=== PATIENT | female | born 1935 | race Caucasian/White ===

== ENCOUNTER 2017-02-28 17:15 | Inpatient (IN) | payer MEDICARE, OTHER ==
[2017-02-28] MEDS: SOD CHLORIDE 0.9% 1,000 ML IV (18:02)
[2017-02-28] MEDS: ONDANSETRON 4 MG INJ IV (18:02)
[2017-02-28 18:06] LABS: ADD MAN DIFF? NO
[2017-02-28 18:22] LABS: INR 1.01; PROTIME 13.4 Sec (11.9-14.9)
[2017-02-28 18:30] LABS: ALANINE AMINOTRANSFERASE 34 IU/L (13-69); ALBUMIN 4.5 g/dl (3.3-4.9); ALKALINE PHOSPHATASE 85 IU/L (42-121); ANION GAP 19 (8-16); ASPARTATE AMINO TRANSFERASE 26 IU/L (15-46); BILIRUBIN,INDIRECT 0.1 mg/dl (0-1.1); BILIRUBIN,TOTAL 0.1 mg/dl (0.2-1.3); BLOOD UREA NITROGEN 23 mg/dl (7-20); CALCIUM 9.5 mg/dl (8.4-10.2); CARBON DIOXIDE 24 mmol/L (21-31); CHLORIDE 108 mmol/L (97-110); CREATININE 0.96 mg/dl (0.44-1.00); GLUCOSE 191 mg/dl (70-220); POTASSIUM 5.4 mmol/L (3.5-5.1); SODIUM 146 mmol/L (135-144); TOTAL PROTEIN 7.3 g/dl (6.1-8.1)
[2017-02-28 18:31] LABS: AMMONIA < 9 umol/l (9-30)
[2017-02-28 18:33] LABS: LACTIC ACID 2.3 mmol/L (0.5-2.0)
[2017-02-28 18:42] LABS: TROPONIN-I < 0.012 ng/ml (0.00-0.12)
[2017-02-28 19:37] LABS: WHITE BLOOD COUNT 6.3 10^3/ul (4.8-10.8)
[2017-02-28 19:37] LABS: BASOPHILS % 0.6 % (0.0-2.0); EOSINOPHILS % 0.2 % (0.0-7.0); HEMATOCRIT 29.6 % (37.0-47.0); HEMOGLOBIN 9.1 g/dl (12.0-16.0); LYMPHOCYTES % 16.2 % (15.0-51.0); MEAN CORPUSCULAR HEMOGLOBIN 25.2 pg (29.0-33.0); MEAN CORPUSCULAR HGB CONC 30.7 g/dl (32.0-37.0); MONOCYTE # 0.2 10^3/ul (0.3-0.9); MONOCYTES % 3.5 % (0.0-11.0); PLATELET COUNT 229 10^3/UL (140-415); RED BLOOD COUNT 3.61 10^6/ul (4.20-5.40)
[2017-02-28 19:52] LABS: LACTIC ACID 1.8 mmol/L (0.5-2.0)
[2017-02-28 19:54] LABS: PARTIAL THROMBOPLASTIN TIME 31.2 Sec (25.0-35.0)
[2017-02-28 20:10] LABS: ADD UMIC YES; UR ASCORBIC ACID NEGATIVE (NEGATIVE); UR BILIRUBIN (Dip) NEGATIVE (NEGATIVE); UR BLOOD (Dip) NEGATIVE (NEGATIVE); UR CLARITY CLEAR (CLEAR); UR COLOR STRAW (YELLOW); UR GLUCOSE (Dip) 1+ mg/dL (NEGATIVE); UR KETONES (Dip) TRACE mg/dL (NEGATIVE); UR LEUKOCYTE ESTERASE (Dip) TRACE Leu/ul (NEGATIVE); UR NITRITE (Dip) NEGATIVE (NEGATIVE); UR RBC 1 /HPF (0-5); UR SPECIFIC GRAVITY (Dip) 1.011 (1.003-1.030); UR TOTAL PROTEIN (Dip) NEGATIVE (NEGATIVE); UR UROBILINOGEN (Dip) NEGATIVE (NEGATIVE); UR WBC 10 /HPF (0-5)
[2017-02-28] MEDS ORDERED: ACETAMINOPHEN 325 MG TAB PO (21:00)
[2017-02-28] MEDS ORDERED: ONDANSETRON 4 MG INJ IV (21:00)
[2017-02-28] MEDS: CEFTRIAXONE 1 GM/50 ML (PMX) 50 ML IVPB (21:08)
[2017-02-28 21:58] LABS: LACTIC ACID 2.2 mmol/L (0.5-2.0)
[2017-02-28] MEDS ORDERED: MAGNESIUM HYDROXIDE 30ML CUP PO (23:00)
[2017-02-28] MEDS ORDERED: DEXTROSE 50% 50 ML SYRINGE IV ×2 (23:00)
[2017-02-28] MEDS ORDERED: GLUCOSE GEL 15 GRAM TUBE BUCCAL (23:00)
[2017-02-28] MEDS ORDERED: BISACODYL (EC) 5 MG TAB PO (23:00)
[2017-02-28] MEDS ORDERED: GLUCOSE GEL 15 GRAM TUBE PO ×2 (23:00)
[2017-02-28] MEDS ORDERED: DOCUSATE SODIUM 100 MG CAP PO (23:00)
[2017-02-28] MEDS ORDERED: GLUCAGON 1 MG INJ IM (23:00)
[2017-02-28] MEDS ORDERED: NACL 0.9% 3 ML SYG IV (23:00)
[2017-02-28] MEDS: FAMOTIDINE 20 MG TAB PO (23:55)
[2017-03-01] MEDS: SOD CHLORIDE 0.9% 1,000 ML IV (02:38)
[2017-03-01 06:01] LABS: ADD MAN DIFF? NO
[2017-03-01 06:17] LABS: BASOPHILS % 0.4 % (0.0-2.0); EOSINOPHILS # 0.1 10^3/ul (0.0-0.5); EOSINOPHILS % 0.8 % (0.0-7.0); HEMOGLOBIN 8.6 g/dl (12.0-16.0); LYMPHOCYTES # 1.9 10^3/ul (0.8-2.9); LYMPHOCYTES % 25.8 % (15.0-51.0); MEAN CORPUSCULAR HEMOGLOBIN 24.9 pg (29.0-33.0); MEAN CORPUSCULAR HGB CONC 30.7 g/dl (32.0-37.0); MEAN CORPUSCULAR VOLUME 81.2 fl (82.0-101.0); MEAN PLATELET VOLUME 10.3 fl (7.4-10.4); MONOCYTE # 0.6 10^3/ul (0.3-0.9); MONOCYTES % 7.6 % (0.0-11.0); NEUTROPHIL # 4.9 10^3/ul (1.6-7.5); PLATELET COUNT 241 10^3/UL (140-415); RED BLOOD COUNT 3.45 10^6/ul (4.20-5.40)
[2017-03-01 06:17] LABS: WHITE BLOOD COUNT 7.5 10^3/ul (4.8-10.8)
[2017-03-01 07:04] LABS: ANION GAP 14 (8-16); BLOOD UREA NITROGEN 21 mg/dl (7-20); CALCIUM 9.2 mg/dl (8.4-10.2); CARBON DIOXIDE 24 mmol/L (21-31); CHLORIDE 110 mmol/L (97-110); CREATININE 0.82 mg/dl (0.44-1.00); GLUCOSE 129 mg/dl (70-220); POTASSIUM 4.7 mmol/L (3.5-5.1); SODIUM 143 mmol/L (135-144)
[2017-03-01 07:12] LABS: FREE THYROXINE INDEX (Calc) 2.72 ug/ml (0.65-3.89); T3 UPTAKE 41.8 % (23.5-40.5); T4 (THYROXINE) 6.5 ug/dl (5.5-11.0)
[2017-03-01] MEDS: CLOPIDOGREL 75 MG TAB PO (08:36)
[2017-03-01] MEDS: metFORMIN 500 MG TAB PO ×2 (08:36→18:20)
[2017-03-01] MEDS: GLIMEPIRIDE 2 MG TAB PO (08:36)
[2017-03-01] MEDS: LINAGLIPTIN 5 MG TABLET PO (08:37)
[2017-03-01] MEDS: FUROSEMIDE 20 MG TAB PO (08:38)
[2017-03-01] MEDS ORDERED: NON-FORMULARY/PATIENT OWN MED (Lurasidone Hcl (Latuda) 20 MG) PO (09:00)
[2017-03-01] MEDS ORDERED: OLMESARTAN PO (09:00)
[2017-03-01] MEDS ORDERED: [UNRECOGNIZED DRUG - OTHER] PO (09:00)
[2017-03-01] MEDS ORDERED: NON-FORMULARY/PATIENT OWN MED (Linaclotide (Linzess) 145 MCG) PO (09:00)
[2017-03-01] MEDS ORDERED: HYDROCHLOROTHIAZIDE PO (09:00)
[2017-03-01] MEDS ORDERED: SOD CHLORIDE 0.9% 1,000 ML IV (10:30)
[2017-03-01] MEDS: ACETAMINOPHEN 325 MG TAB PO ×2 (10:56→11:01)
[2017-03-01] MEDS: INSULIN ASPART [NOVOLOG] 3 ML PEN SC ×3 (12:01→20:51)
[2017-03-01 12:38] LABS: IRON 22 ug/dl (35-150)
[2017-03-01 12:48] LABS: % IRON SATURATION 6 % SAT (22-52); TOTAL IRON BINDING CAPACITY 399 ug/dl (241-421)
[2017-03-01 13:19] LABS: HEMOGLOBIN A1C 7.1 % (0-5.9)
[2017-03-01 13:25] LABS: B-TYPE NATRIURETIC PEPTIDE 740 PG/ML (0-450)
[2017-03-01 13:51] LABS: FERRITIN 8.1 ng/ml (11.1-264.0)
[2017-03-01 14:55] LABS: CREATINE KINASE 61 IU/L (23-200)
[2017-03-01 14:58] LABS: LACTIC ACID 2.5 mmol/L (0.5-2.0)
[2017-03-01 15:06] LABS: CK INDEX 2.3; CK-MB 1.39 ng/ml (0.0-2.4)
[2017-03-01 15:12] LABS: TROPONIN-I < 0.012 ng/ml (0.00-0.12)
[2017-03-01] MEDS: LOSARTAN 25 MG TAB PO ×2 (15:25→23:05)
[2017-03-01] MEDS: [UNRECOGNIZED DRUG - REMARK] XX ×2 (16:00→23:07)
[2017-03-01] MEDS: [UNRECOGNIZED DRUG - REMARK] XX ×2 (16:00→23:08)
[2017-03-01] MEDS ORDERED: NA PHOSPHATE/BIPHOS 133 ML ENEMA PR (16:30)
[2017-03-01] MEDS: MECLIZINE 25 MG TAB PO (18:18)
[2017-03-01] MEDS: ONDANSETRON 4 MG INJ IV (18:19)
[2017-03-01] MEDS: CEFTRIAXONE 1 GM/50 ML (PMX) 50 ML IVPB (21:41)
[2017-03-01] MEDS: FAMOTIDINE 20 MG TAB PO (21:46)
[2017-03-01] MEDS: FERROUS SULFATE (EC) 325 MG TAB PO (21:46)
[2017-03-01] MEDS: ATORVASTATIN 40 MG TAB PO (21:46)
[2017-03-02 05:49] LABS: ADD MAN DIFF? NO
[2017-03-02 06:04] LABS: BASOPHIL # 0.1 10^3/ul (0.0-0.1); BASOPHILS % 0.7 % (0.0-2.0); EOSINOPHILS # 0.1 10^3/ul (0.0-0.5); EOSINOPHILS % 1.8 % (0.0-7.0); HEMATOCRIT 27.7 % (37.0-47.0); HEMOGLOBIN 8.3 g/dl (12.0-16.0); LYMPHOCYTES # 3.1 10^3/ul (0.8-2.9); LYMPHOCYTES % 45.4 % (15.0-51.0); MEAN CORPUSCULAR HEMOGLOBIN 24.4 pg (29.0-33.0); MEAN CORPUSCULAR VOLUME 81.5 fl (82.0-101.0); MEAN PLATELET VOLUME 9.8 fl (7.4-10.4); MONOCYTE # 0.6 10^3/ul (0.3-0.9); PLATELET COUNT 238 10^3/UL (140-415); RED CELL DISTRIBUTION WIDTH 15.9 % (11.5-14.5)
[2017-03-02 06:04] LABS: WHITE BLOOD COUNT 6.9 10^3/ul (4.8-10.8)
[2017-03-02 06:30] LABS: LACTIC ACID 1.8 mmol/L (0.5-2.0)
[2017-03-02 06:58] LABS: ALANINE AMINOTRANSFERASE 26 IU/L (13-69); ALBUMIN 3.4 g/dl (3.3-4.9); ALKALINE PHOSPHATASE 56 IU/L (42-121); ANION GAP 13 (8-16); ASPARTATE AMINO TRANSFERASE 22 IU/L (15-46); BILIRUBIN,INDIRECT 0.1 mg/dl (0-1.1); BILIRUBIN,TOTAL 0.1 mg/dl (0.2-1.3); BLOOD UREA NITROGEN 21 mg/dl (7-20); CALCIUM 8.3 mg/dl (8.4-10.2); CARBON DIOXIDE 26 mmol/L (21-31); CHLORIDE 107 mmol/L (97-110); CREATININE 1.01 mg/dl (0.44-1.00); GLUCOSE 87 mg/dl (70-220); POTASSIUM 4.4 mmol/L (3.5-5.1); SODIUM 142 mmol/L (135-144)
[2017-03-02 07:16] LABS: PHOSPHORUS 3.6 mg/dl (2.5-4.9)
[2017-03-02 07:16] LABS: MAGNESIUM 1.4 mg/dl (1.7-2.5)
[2017-03-02] MEDS: INSULIN ASPART [NOVOLOG] 3 ML PEN SC ×4 (07:50→21:00)
[2017-03-02] MEDS: [UNRECOGNIZED DRUG - REMARK] XX ×2 (08:00→16:00)
[2017-03-02] MEDS: [UNRECOGNIZED DRUG - REMARK] XX ×2 (08:00→16:00)
[2017-03-02] MEDS: metFORMIN 500 MG TAB PO ×2 (09:07→17:59)
[2017-03-02] MEDS: FERROUS SULFATE (EC) 325 MG TAB PO ×2 (09:07→21:14)
[2017-03-02] MEDS: LINAGLIPTIN 5 MG TABLET PO (09:07)
[2017-03-02] MEDS: FUROSEMIDE 20 MG TAB PO (09:07)
[2017-03-02] MEDS: LOSARTAN 25 MG TAB PO ×2 (09:07→21:14)
[2017-03-02] MEDS: CLOPIDOGREL 75 MG TAB PO (09:07)
[2017-03-02] MEDS: POLYETHYLENE GLYCOL 17 GM PACKET PO (09:07)
[2017-03-02] MEDS: ASCORBIC ACID 500 MG TAB PO ×2 (09:30→11:50)
[2017-03-02] MEDS: MAGNESIUM SULFATE 4 GM/100 ML 100 ML IVPB (11:50)
[2017-03-02] MEDS: MECLIZINE 25 MG TAB PO (11:59)
[2017-03-02] MEDS: FAMOTIDINE 20 MG TAB PO (21:14)
[2017-03-02] MEDS: ATORVASTATIN 40 MG TAB PO (21:14)
[2017-03-02] MEDS: GABAPENTIN 300 MG CAP PO (21:14)
[2017-03-02] MEDS: CEFTRIAXONE 1 GM/50 ML (PMX) 50 ML IVPB (22:01)
[2017-03-03 05:17] LABS: ADD MAN DIFF? NO
[2017-03-03 05:18] LABS: WHITE BLOOD COUNT 7.1 10^3/ul (4.8-10.8)
[2017-03-03 05:18] LABS: BASOPHIL # 0.1 10^3/ul (0.0-0.1); BASOPHILS % 0.7 % (0.0-2.0); EOSINOPHILS # 0.2 10^3/ul (0.0-0.5); EOSINOPHILS % 2.1 % (0.0-7.0); HEMATOCRIT 29.5 % (37.0-47.0); HEMOGLOBIN 8.8 g/dl (12.0-16.0); LYMPHOCYTES % 41.4 % (15.0-51.0); MEAN CORPUSCULAR HEMOGLOBIN 24.7 pg (29.0-33.0); MEAN CORPUSCULAR HGB CONC 29.8 g/dl (32.0-37.0); MEAN CORPUSCULAR VOLUME 82.9 fl (82.0-101.0); MEAN PLATELET VOLUME 9.4 fl (7.4-10.4); MONOCYTE # 0.6 10^3/ul (0.3-0.9); MONOCYTES % 8.3 % (0.0-11.0); NEUTROPHIL # 3.4 10^3/ul (1.6-7.5); NEUTROPHILS % 47.4 % (39.0-77.0); PLATELET COUNT 230 10^3/UL (140-415); RED BLOOD COUNT 3.56 10^6/ul (4.20-5.40); RED CELL DISTRIBUTION WIDTH 15.8 % (11.5-14.5)
[2017-03-03 05:38] LABS: ANION GAP 13 (8-16); BLOOD UREA NITROGEN 27 mg/dl (7-20); CALCIUM 9.1 mg/dl (8.4-10.2); CARBON DIOXIDE 26 mmol/L (21-31); CHLORIDE 105 mmol/L (97-110); CREATININE 1.11 mg/dl (0.44-1.00); GLUCOSE 95 mg/dl (70-220); POTASSIUM 4.3 mmol/L (3.5-5.1); SODIUM 140 mmol/L (135-144)
[2017-03-03 05:40] LABS: MAGNESIUM 2.2 mg/dl (1.7-2.5)
[2017-03-03] MEDS: INSULIN ASPART [NOVOLOG] 3 ML PEN SC ×2 (07:50→11:40)
[2017-03-03] MEDS: metFORMIN 500 MG TAB PO ×2 (07:50→12:30)
[2017-03-03] MEDS: [UNRECOGNIZED DRUG - REMARK] XX ×3 (08:00→16:00)
[2017-03-03] MEDS: [UNRECOGNIZED DRUG - REMARK] XX ×3 (08:00→16:00)
[2017-03-03] MEDS: CLOPIDOGREL 75 MG TAB PO ×2 (09:00→12:31)
[2017-03-03] MEDS: POLYETHYLENE GLYCOL 17 GM PACKET PO ×2 (09:00→12:32)
[2017-03-03] MEDS: LOSARTAN 25 MG TAB PO ×2 (09:00→12:32)
[2017-03-03] MEDS: FERROUS SULFATE (EC) 325 MG TAB PO ×2 (09:00→12:31)
[2017-03-03] MEDS: LINAGLIPTIN 5 MG TABLET PO ×2 (09:00→12:31)
[2017-03-03] MEDS: ASCORBIC ACID 500 MG TAB PO ×2 (09:00→12:31)
[2017-03-03] MEDS: ACETAMINOPHEN 325 MG TAB PO (10:43)
[2017-03-03] MEDS: metroNIDAZOLE 500 MG TAB PO (12:40)
== END 2017-03-03 16:23 | disposition home health service (06) | DRG 759 ==
LOC: MS1 22:36 → E/R 17:15
DX: N76.0 Acute vaginitis (principal); B96.89 Other specified bacterial agents as the cause of diseases classified elsewhere; N30.90 Cystitis, unspecified without hematuria; E11.9 Type 2 diabetes mellitus without complications; I10 Essential (primary) hypertension; F32.9 Major depressive disorder, single episode, unspecified; I25.10 Atherosclerotic heart disease of native coronary artery without angina pectoris; R41.82 Altered mental status, unspecified; E78.5 Hyperlipidemia, unspecified; H81.10 Benign paroxysmal vertigo, unspecified ear; D50.9 Iron deficiency anemia, unspecified
CPT/HCPCS: 36415; 70450; 71045; 74176; 80048; 80053; 81001; 82140; 82550; 82553; 82728; 82962; 83036; 83540; 83605; 83735; 83880; 84100; 84436; 84479; 84484; 85025; 85610; 85730; 87040; 87086; 93005; 93306; 93970; 96374; 96375; 97162; 99291-25

== ENCOUNTER 2017-08-27 11:38 | Emergency (ER) | payer MEDICARE, OTHER ==
[2017-08-27 12:33] LABS: ADD MAN DIFF? NO
[2017-08-27] MEDS: morphine 4 MG/ML VIAL IV (12:34)
[2017-08-27] MEDS: ONDANSETRON 4 MG INJ IV (12:34)
[2017-08-27 12:39] LABS: BASOPHIL # 0.1 10^3/ul (0.0-0.1); BASOPHILS % 0.8 % (0.0-2.0); EOSINOPHILS # 0.2 10^3/ul (0.0-0.5); HEMATOCRIT 36.7 % (37.0-47.0); HEMOGLOBIN 11.6 g/dl (12.0-16.0); LYMPHOCYTES # 2.2 10^3/ul (0.8-2.9); LYMPHOCYTES % 36.8 % (15.0-51.0); MEAN CORPUSCULAR HEMOGLOBIN 28.9 pg (29.0-33.0); MEAN CORPUSCULAR HGB CONC 31.6 g/dl (32.0-37.0); MEAN CORPUSCULAR VOLUME 91.3 fl (82.0-101.0); MEAN PLATELET VOLUME 9.9 fl (7.4-10.4); MONOCYTE # 0.5 10^3/ul (0.3-0.9); NEUTROPHILS % 49.9 % (39.0-77.0); PLATELET COUNT 220 10^3/UL (140-415); RED BLOOD COUNT 4.02 10^6/ul (4.20-5.40); RED CELL DISTRIBUTION WIDTH 14.3 % (11.5-14.5)
[2017-08-27 13:04] LABS: ALANINE AMINOTRANSFERASE 24 IU/L (13-69); ALBUMIN 4.1 g/dl (3.3-4.9); ALBUMIN/GLOBULIN RATIO 1.36; ALKALINE PHOSPHATASE 65 IU/L (42-121); ANION GAP 12 (8-16); ASPARTATE AMINO TRANSFERASE 23 IU/L (15-46); BILIRUBIN,INDIRECT 0.2 mg/dl (0-1.1); BILIRUBIN,TOTAL 0.2 mg/dl (0.2-1.3); BLOOD UREA NITROGEN 32 mg/dl (7-20); CALCIUM 9.3 mg/dl (8.4-10.2); CARBON DIOXIDE 18 mmol/L (21-31); CHLORIDE 119 mmol/L (97-110); CREATININE 1.17 mg/dl (0.44-1.00); GLUCOSE 174 mg/dl (70-220); LIPASE 117 U/L (23-300); POTASSIUM 5.7 mmol/L (3.5-5.1); SODIUM 143 mmol/L (135-144); TOTAL PROTEIN 7.1 g/dl (6.1-8.1)
[2017-08-27] MEDS: NA POLYST SULFON 15 GM/60 ML BTL PO (14:34)
[2017-08-27 15:29] LABS: ADD UMIC YES; UR ASCORBIC ACID NEGATIVE (NEGATIVE); UR BILIRUBIN (Dip) NEGATIVE (NEGATIVE); UR BLOOD (Dip) 1+ mg/dL (NEGATIVE); UR CLARITY CLEAR (CLEAR); UR COLOR YELLOW (YELLOW); UR GLUCOSE (Dip) NEGATIVE (NEGATIVE); UR KETONES (Dip) NEGATIVE (NEGATIVE); UR LEUKOCYTE ESTERASE (Dip) 1+ Leu/ul (NEGATIVE); UR NITRITE (Dip) NEGATIVE (NEGATIVE); UR RBC 1 /HPF (0-5); UR SPECIFIC GRAVITY (Dip) 1.014 (1.003-1.030); UR TOTAL PROTEIN (Dip) NEGATIVE (NEGATIVE); UR UROBILINOGEN (Dip) NEGATIVE (NEGATIVE); UR WBC 11 /HPF (0-5)
[2017-08-27] MEDS: CEPHALEXIN 500 MG CAP PO (15:45)
[2017-08-27] MEDS ORDERED: CIPROFLOXACIN 500 MG TAB PO (16:00)
== END 2017-08-27 16:32 | disposition home or self-care (01) ==
LOC: E/R 11:38
DX: N12 Tubulo-interstitial nephritis, not specified as acute or chronic (principal); E87.5 Hyperkalemia; I10 Essential (primary) hypertension; E11.9 Type 2 diabetes mellitus without complications; Z79.01 Long term (current) use of anticoagulants; Z79.84 Long term (current) use of oral hypoglycemic drugs
CPT/HCPCS: 36415; 74176; 80053; 81001; 83690; 85025; 87086; 96374; 96375; 99285-25